=== PATIENT | male | born 1985 | race Hispanic/Latino ===

== ENCOUNTER 2017-11-07 20:02 | Emergency (ER) | payer OTHER ==
[~2017-11-07] VITALS: Ht 170.2 cm; Wt 88.5 kg
[2017-11-07 20:05] VITALS: BP 123/72
--- NOTE | 2017-11-07 20:21 | ED GI/GU/ABDOMINAL COMPLAINT ---
History of Present Illness General Chief Complaint: Male Genitourinary Problems Stated Complaint: SWELLING IN GROIN Source: patient Exam Limitations: no limitations Vital Signs & Intake/Output Vital Signs & Intake/Output Vital Signs Date Time Temp Pulse Resp B/P B/P Pulse O2 O2 Flow FiO2 Mean Ox Delivery Rate 11/07 2004 97.9 66 18 123/72 99 Room Air Allergies Coded Allergies: NO KNOWN ALLERGIES (03/25/11) Triage Note: PT C/O SWELLING TO L GROIN NOTICED 2 HRS AGO. DENIES RADIATING PAIN. DENIES DIFFICULTY URINATING. Triage Nurses Notes Reviewed? 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 Patient denies any mechanism injury denies any pain or trauma erythema warmth or tenderness to the region denies any testicular pain or swelling denies any nausea vomiting fever chills and is otherwise without complaints. (Kentrell Elder) Past History Travel History Traveled to [place] past 21 day No Medical History Any Pertinent Medical History? none Neurological: NONE EENT: NONE Cardiovascular: NONE Respiratory: NONE Gastrointestinal: NONE Hepatic: NONE Renal: NONE Musculoskeletal: NONE Psychiatric: NONE Endocrine: NONE Blood Disorders: NONE Cancer(s): NONE ADULT CARE PROVIDER/Reproductive: NONE Surgical History Surgical History: none Psychosocial History What is your primary language Amharic Tobacco Use: Never used Family History Hx Contributory? No (Kentrell Elder) Review of Systems Review of Systems Constitutional: Reports: no symptoms. EENTM: Reports: no symptoms. Respiratory: Reports: no symptoms. Cardiovascular: Reports: no symptoms. GI: Reports: see HPI. Genitourinary: Reports: no symptoms. Musculoskeletal: Reports: no symptoms. Skin: Reports: no symptoms. Neurological/Psychological: Reports: no symptoms. Hematologic/Endocrine: Reports: no symptoms. Immunologic/Allergic: Reports: no symptoms. All Other Systems: Reviewed and Negative (Kentrell Elder) Physical Exam Physical Exam General Appearance: no apparent distress, alert, comfortable Head: atraumatic Eyes: Bilateral: normal appearance. Ears, Nose, Throat, Mouth: hearing grossly normal Neck: normal inspection Respiratory: normal breath sounds Cardiovascular: regular rate/rhythm Gastrointestinal: normal bowel sounds, soft, non-tender Male Genitals: normal genitalia Extremities: normal range of motion Neurologic/Psych: no motor/sensory deficits, awake, alert, oriented x 3, normal gait Skin: intact, normal color Diagram Body Front & Back 1) 1.5 CM NONTENDER CYSTLIKE STRUCTURE. No erythema no warmth no tenderness no fluctuance no induration Core Measures ACS in differential dx? No Sepsis Present: No Sepsis Focused Exam Completed? No (Kentrell Elder) Progress Differential Diagnosis: bowel obstruction, colon cancer, cholecystitis, diverticulitis, epididymitis, esophageal varices, gastritis, hepatitis, hernia, hemorrhoids, ischemic bowel, inflamm bowel dis, Lillian-Kirk tear, orchitis, pancreatitis, prostatitis, peptic ulcer, PUD/GERD, perforated viscous, pyelonephritis, SBO, testicular torsion, ureterolithiasis, urinary retention, urethritis, UTI/pyelo Plan of Care: Patient has no testicular pain or swelling on exam cream is to reflex intact no findings of hernia at this time, Patient has nontender abdomen there is a palpable cystlike structure to patient' s left pelvic region however no overt findings of abscess or cellulitis on exam And patient's cyst structure is nontender No concerns of testicular torsion or infectious process Patient was strongly advised to follow up and establish a primary care doctor through [facility] and was given and ultrasound prescription for evaluation of this region. Upon discharge patient looks well no apparent distress and will comply with discharge instructions and had no questions ultrasound was unavailable at this time in which CT scan was the only imaging for patients presentation and was risks and benefits were explained where patient agrees to obtain an ultrasound Initial ED EKG: none (Kentrell Elder) Departure Departure Disposition: HOME OR SELF CARE Condition: Stable Clinical Impression Primary Impression: Left pelvic swelling Referrals: Patient Has No Primary Care Dr (PCP/Family) Additional Instructions: As discussed if you develop a new concerning symptom or symptoms worsen return to emergency room, please follow-up with TO establish [facility] practice to establish a doctor for further evaluation treatment. On Thursday please call the department of radiology at [facility] scheduling to receive an ultrasound to the swollen region of your pelvis. Phone number [phone]. Departure Forms: Customer Survey General Discharge Information (Kentrell Elder) PA/GAS STATION CLERK Co-Sign Statement Statement: ED Attending supervision documentation- [] I saw and evaluated the patient. I have also reviewed all the pertinent lab results and diagnostic results. I agree with the findings and the plan of care as documented in the PA's/GAS STATION CLERK's documentation. [x] I have reviewed the ED Record and agree with the PA's/GAS STATION CLERK's documentation. [] Additions or exceptions (if any) to the PAs/GAS STATION CLERK's note and plan are summarized below: [] (Samanta NORTON,Alexander Zaldivar)
== END 2017-11-07 20:58 ==
LOC: ERH 20:02
DX: R19.09 Other intra-abdominal and pelvic swelling, mass and lump (principal)